=== PATIENT | female | born 1965 | race Two or more races ===

== ENCOUNTER → 2024-11-14 | Emergency (ER) | payer OTHER ==
[~2024-11-14] VITALS: Ht 170.2 cm; Wt 108.9 kg
[~2024-11-14] MED LIST: COZAAR25 MG; GLUMETZA500 MG; ROSUVASTATIN CA10 MG; WEGOVY0.25 MG/0.
== END | disposition left against medical advice (07) ==
LOC: ER 20:46
DX: Z53.21 Procedure and treatment not carried out due to patient leaving prior to being seen by health care provider (principal)